=== PATIENT | female | born 1950 | race Two or more races ===

== ENCOUNTER 2024-12-07 08:38 | Emergency (ER) | payer OTHER ==
[~2024-12-07] VITALS: Ht 157.5 cm; Wt 88.3 kg
[2024-12-07 09:49] VITALS: BP 140/74; PULSE 92; RESP 20; TEMP 98.7; O2SAT 96
[2024-12-07] MEDS ORDERED: PSEU240T PO (09:53)
[2024-12-07] MEDS ORDERED: SODI1KIT2 (09:53)
[2024-12-07] MEDS ORDERED: AUG875T PO (09:53)
--- NOTE | 2024-12-07 09:53 | ED.PDOC ---
SOB-HPI HPI Comments 74-year-old female with no pertinent MHx presents for a possible sinus infection x4 weeks. Complains of frontal sinus pressure that worsens with leaning forward. Associated with tenderness to palpation Denies diplopia high fevers Chief Complaint: Cough Time Seen by MD: 09:09 Reviewed notes: Nurses Notes, Medications, Allergies Information Source: Patient Mode of Arrival: Ambulatory All Other Systems: Reviewed and Negative (Per HPI) Physical Exam General Appearance: No Apparent Distress, Normal HEENT: Normal ENT Inspection, Pharynx Normal, TMs Normal, Other (Frontal sinus TTP) Neck: Full Range of Motion, Non-Tender, Normal, Normal Inspection Respiratory: Chest Non-Tender, Lungs Clear, No Accessory Muscle Use, No Respiratory Distress, Normal Breath Sounds Cardiovascular: No Edema, No JVD, No Murmur, No Gallop, Normal Peripheral Pul ses, Regular Rate/Rhythm Breast Exam: Deferred Gastrointestinal: No Organomegaly, Non Tender, No Pulsatile Mass, Normal Bowel Sounds, Soft Genitalia: Deferred Pelvic: Deferred Rectal: Deferred Extremities: No calf tenderness, Normal capillary refill, Normal inspection, Normal range of motion, Non-tender, No pedal edema Musculoskeletal : Apperance: Normal Neurologic: Alert, No Motor Deficits, Normal Affect, Normal Mood, No Sensory Deficits Cerebellar Function: Normal Reflexes: Normal Skin: Dry, Normal Color, Warm Lymphatic: No Adenopathy Was a procedure done? Was a procedure done?: No Differential Dx Differential Diagnosis: Sinusitis, URI X-Ray, Labs, Meds, VS Vital Signs Date Time Temp Pulse Resp B/P (MAP) Pulse Ox O2 Delivery O2 Flow Rate FiO2 12/07/24 09:49 92 20 96 Room Air 12/07/24 09:49 98.7 92 20 140/74 (96) 96 98.7 12/07/24 09:04 98.8 95 22 143/69 (93) 96 X-Ray, Labs, Meds, VS Comment Differential considered but not limited to frontal headache, migraine, URI. I also considered orbital cellulitis, osteomyelitis, cerebral abscess, meningitis, frontal bone abscess (Pott puffy tumor), however, this is less likely as the patient does not have any red flags. Patient is not immunocompromised, they are non-toxic, there are no high fevers and do not present with an intractable headache, During the physical exam there was TTP over the frontal and maxillary sinuses consistent with sinusitis therefore routine imaging such as CT was deferred during this visit. Prescribed antibiotics for presentation of symptoms. Complete course of antibiotic therapy even if symptoms improve or resolve. There should be no leftover antibiotics as this can lead to antibiotic resistant bacteria and even worse infection. Potential side effects discussed including abdominal pain, nausea, diarrhea. Also recommend antihistamines, decongestants and antipyretics as needed. Patient is stable for discharge at this time. External notes reviewed. Test results and diagnostic imaging interpreted. All diagnostic findings, discharge care, education and instructions provided Follow-up with PCP in 2 to 3 days Patient verbalized understanding and agreed to treatment plan Vital signs stable, afebrile, no acute distress noted Patient ambulatory with strong steady gait Advised to return precautions for any new or worsening symptoms, return to ER immediately for re-evaluation Patient is aware that the purpose of this visit was for an acute medical emergency requiring emergent stabilization. Chronic conditions, including malignancies have not been ruled out. Patient is instructed to follow up with PCP as directed and discharge instructions for continued care and workup. If unable to arrange follow-up, patient is to return to the emergency department f or reassessment. Patient (parent or legal guardian if applicable) was given verbal and written discharge instructions and acknowledges understanding. Time of 1ST Reevaluation: 09:45 Reevaluation 1ST: Improved Patient Education/Counseling: Diagnosis, Treatment Family Education/Counseling: Diagnosis, Treatment Departure 1 Departure Time of Disposition: 09:51 Impression: Primary Impression: Sinusitis Qualified Codes: J01.10 - Acute frontal sinusitis, unspecified Disposition: HOME / SELF CARE / HOMELESS Condition: Stable e-Prescriptions Sodium Chloride-Sodium Bicarbo (Neti Pot Kit Sinus Wash/C 2300-700 mg) 1 Kit Kit 1 KIT NA UD for 1 Day, #1 KIT 0 Refills Prov: CHRISTOPHER COATES [employer] 12/07/24 Pseudoephedrine (Sudafed 24 Hour) 240 Mg Tab 240 MG PO DAILY for 14 Days, #14 TAB 0 Refills Prov: CHRISTOPHER COATES [employer] 12/07/24 Amoxicillin & Pot Clavulanate (AUGMENTIN TABLET) 875 Mg Tb 875 MG PO BID for 7 Days, #14 TAB 0 Refills Prov: CHRISTOPHER COATES [employer] 12/07/24 Critical Care Note Critical Care Time?: No Stability Stability form required: No Heart Score Heart Score: Heart Score Response (Comments) Value History N/A 0 EKG N/A 0 Age N/A 0 Risk Factors N/A 0 Troponin N/A 0 Total 0 CHRISTOPHER COATES NP Dec 07, 2024 09:53
== END 2024-12-07 10:07 | disposition home or self-care (01) ==
LOC: ER 08:38
DX: J32.9 Chronic sinusitis, unspecified (principal)